=== PATIENT | male | born 1960 | race Asian ===

== ENCOUNTER → 2020-01-26 | Outpatient (CLI) | payer BC ==
[~2020-01-26] MED LIST: ASPI81EC PO; ATEN25; ATOR10 PO; METF500C PO; METO50 PO; Norco 5-325 Ta1 EACH PO; ONDA4ODT MM; OXYACE5T PO; WARF10 PO; XIFAXAN; Zofran Odt4 MG SL
[2020-01-26 11:49] LABS: Influenza A Negative (NEGATIVE); Influenza B Negative (NEGATIVE)
== END | disposition home or self-care (01) ==
LOC: LAB SHORT 11:06 → LAB 11:06
PROVIDERS: Internal Medicine Nephrology
DX: J20.9 Acute bronchitis, unspecified (principal)
CPT/HCPCS: 87804

== ENCOUNTER 2020-02-02 15:08 | Inpatient (IN) | payer BC ==
[~2020-02-02] VITALS: Ht 175.3 cm; Wt 80.0 kg
[~2020-02-02 15:08] MED LIST changes: +ASPI81CH PO; -ASPI81EC PO; +LOSA25 PO
--- NOTE | 2020-02-02 15:35 | NUR ---
PT TO [facility] FOR JUDY. PT HAD IV IN PLACE L WRSIT (RECEIVING OUTPT ABX), UNABLE TO FLUSH, REMOVED-CANNULA INTACT.
--- NOTE | 2020-02-02 17:28 | NUR ---
PT DROWSY POST JUDY, BUT CONVERING APPROPRIATELY. PT DENIES PAIN, SOB OR NAUSEA. MONITOR SR 70-80'S, B/P 112/74, 99.2, SPO2 94-95% RA. DR DONALD INTO DISCUSS FINDINGS WITH PT.
--- NOTE | 2020-02-02 18:03 | NUR ---
DR BACK HERE TO EVALUATE PT.
--- NOTE | 2020-02-02 18:33 | NUR ---
REPORT CALLED TO JUANITA RN PCU, ALL QUESTIONS ANSWERED. PT TO PCU 6 VIA W/C, CONDITION STABLE.
[2020-02-02 20:00] LABS: BASOPHILS ABSOLUTE AUTO 0.03 K/mm3 (0.00-0.23); BASOPHILS PERCENT AUTO 0 % (0-2); EOSINOPHILS ABSOLUTE AUTO 0.13 K/mm3 (0.00-0.68); EOSINOPHILS PERCENT AUTO 2 % (0-6); Hematocrit 38.7 % (37.0-53.0); Hemoglobin 13.2 g/dL (13.5-17.5); IMMATURE GRAN ABSOLUTE AUTO 0.07 K/mm3 (0.00-0.10); IMMATURE GRAN PERCENT AUTO 1 % (0-1); LYMPHOCYTES ABSOLUTE AUTO 0.93 K/mm3 (0.84-5.20); LYMPHOCYTES PERCENT AUTO 12 % (21-46); MONOCYTES ABSOLUTE AUTO 0.65 K/mm3 (0.16-1.47); MONOCYTES PERCENT AUTO 8 % (4-13); Mean Corpuscular HGB Conc 34.1 g/dL (31.5-36.5); Mean Corpuscular Volume 91 fL (80-100); Mean Platelet Volume 9.5 fL (9.1-12.4); NEUTROPHILS ABSOLUTE AUTO 6.05 K/mm3 (1.96-9.15); NEUTROPHILS PERCENT AUTO 77 % (41-73); Platelet Count 247 K/mm3 (150-400); RDW Coefficient Variation 11.6 % (11.7-14.2); RDW Standard Deviation 38.9 fL (35.1-46.3); Red Blood Cell Count 4.26 M/mm3 (4.30-5.90); White Blood Cell Count 7.86 K/mm3 (4.00-11.30)
[2020-02-02 20:19] LABS: International Normalized Ratio 2.47; Prothrombin Time Results 25.1 Sec (9.7-11.5)
[2020-02-02 20:22] LABS: Albumin, Blood 3.4 g/dL (3.4-5.0); Anion Gap 4 mmol/L (6-16); Blood Urea Nitrogen 12 mg/dL (8-24); Bun/Creatinine Ratio 15.4 (12.0-20.0); CO2, Blood 28 mmol/L (21-32); Calcium, Blood 8.4 mg/dL (8.5-10.1); Chloride, Blood 103 mmol/L (98-108); Creatinine, Blood 0.78 mg/dL (0.60-1.20); Glomerular Filtration Rate >60 (60-); Glucose, Blood 264 mg/dL (70-99); Phosphorus, Blood 2.2 mg/dL (2.5-4.9); Potassium, Blood 3.4 mmol/L (3.5-5.5); Sodium, Blood 135 mmol/L (136-145)
[2020-02-03 04:09] LABS: BASOPHILS ABSOLUTE AUTO 0.04 K/mm3 (0.00-0.23); BASOPHILS PERCENT AUTO 1 % (0-2); EOSINOPHILS ABSOLUTE AUTO 0.23 K/mm3 (0.00-0.68); EOSINOPHILS PERCENT AUTO 3 % (0-6); Hematocrit 37.6 % (37.0-53.0); Hemoglobin 13.2 g/dL (13.5-17.5); IMMATURE GRAN ABSOLUTE AUTO 0.09 K/mm3 (0.00-0.10); IMMATURE GRAN PERCENT AUTO 1 % (0-1); LYMPHOCYTES ABSOLUTE AUTO 1.04 K/mm3 (0.84-5.20); LYMPHOCYTES PERCENT AUTO 13 % (21-46); MONOCYTES ABSOLUTE AUTO 0.97 K/mm3 (0.16-1.47); MONOCYTES PERCENT AUTO 12 % (4-13); Mean Corpuscular HGB 31.3 pg (26.0-34.0); Mean Corpuscular HGB Conc 35.1 g/dL (31.5-36.5); Mean Corpuscular Volume 89 fL (80-100); NEUTROPHILS ABSOLUTE AUTO 5.51 K/mm3 (1.96-9.15); NEUTROPHILS PERCENT AUTO 70 % (41-73); Platelet Count 185 K/mm3 (150-400); RDW Coefficient Variation 11.7 % (11.7-14.2); RDW Standard Deviation 37.4 fL (35.1-46.3); Red Blood Cell Count 4.22 M/mm3 (4.30-5.90); White Blood Cell Count 7.88 K/mm3 (4.00-11.30)
[2020-02-03 04:32] LABS: Anion Gap 6 mmol/L (6-16); Blood Urea Nitrogen 12 mg/dL (8-24); Bun/Creatinine Ratio 15.4 (12.0-20.0); CO2, Blood 26 mmol/L (21-32); Calcium, Blood 8.5 mg/dL (8.5-10.1); Chloride, Blood 108 mmol/L (98-108); Creatinine, Blood 0.78 mg/dL (0.60-1.20); Glomerular Filtration Rate >60 (60-); Glucose, Blood 154 mg/dL (70-99); Potassium, Blood 3.7 mmol/L (3.5-5.5); Sodium, Blood 140 mmol/L (136-145)
[2020-02-03 04:37] LABS: International Normalized Ratio 2.35
--- NOTE | 2020-02-03 05:49 | NUR ---
SHIFT SUMMARY PT SLEEPING IN ROOM COMFORTABLY AT THIS TIME. NO ACUTE CHANGES IN STATUS T/O NIGHT. PT SLEPT WELL. DENIED CP OR SOB. PT WAS MEDCIATED EARLY IN SHIFT FOR MILD FEVER AND CHILLS. NS INFUSING IN PIV. RESP EVEN UNLABORED ON RA W/ SATS >92%. DENIED OTHER NEEDS. PT IND IN ROOM. CALL LIGHT IN REACH.
[2020-02-03 12:30] LABS: Source, Urine Clean Catch
[2020-02-03 12:44] LABS: Bilirubin, Urine Neg (Neg); Blood, Urine Neg (Neg); Glucose Qualitative, Urine 3+ (Neg); Ketones, Urine Neg (Neg); Leukocyte Esterase, Urine Neg (Neg); Nitrite, Urine Neg (Neg); Protein, Urine Neg (Neg); Specific Gravity, Urine 1.015 (1.003-1.022); Urobilinogen, Urine NORM (Normal)
[2020-02-03 12:48] LABS: Appearance, Urine Clear (Clear); Color, Urine Yellow (P-Yellow)
--- NOTE | 2020-02-03 17:20 | NUR ---
SHIFT NOTE PT HAS BEEN INDEPENDANT IN ROOM T/O THE DAY. PT HAS BEEN UP TO THE SHOWER. DR TSE, DR MINOR, DR MERCADO AND DR MINOR HAVE CONSULTED WITH PT. PT HAS BEEN UPDATED AND EDUCATED ON ALL MEDICATION CHANGES T/O THE DAY. CONSULTED WITH DR MINOR FOR CT CHEST/ABD/PELVIS WITH CONTRAST WHICH WAS PERFORMED TODAY. PT HAS BEEN RESTING IN BED W/O CP OR SOB T/O THE DAY. DOES REPORT MILD THROAT PAIN FROM YESTEDAY'S JUDY. PT STS THAT HE HAS HAD SOME CHILLS TODAY BUT HAS REMAINED A-FEBRILE. PT STS THAT HE WOULD LIKE SOME TYLENOL TONIGHT BEFORE BED TO HELP WITH GENERALIZED BODY AHCES
--- NOTE | 2020-02-03 20:30 | NUR ---
PT REQUESTING NO MIDNIGHT VITALS. VS HAVE BEEN STABLE T/O STAY. SBP WAS LOW AT START OF SHIFT. METOPROLOL HELD.
[2020-02-04 03:35] LABS: BASOPHILS ABSOLUTE AUTO 0.03 K/mm3 (0.00-0.23); BASOPHILS PERCENT AUTO 0 % (0-2); EOSINOPHILS ABSOLUTE AUTO 0.26 K/mm3 (0.00-0.68); EOSINOPHILS PERCENT AUTO 3 % (0-6); Hematocrit 37.3 % (37.0-53.0); Hemoglobin 12.7 g/dL (13.5-17.5); IMMATURE GRAN ABSOLUTE AUTO 0.11 K/mm3 (0.00-0.10); IMMATURE GRAN PERCENT AUTO 1 % (0-1); LYMPHOCYTES ABSOLUTE AUTO 0.95 K/mm3 (0.84-5.20); LYMPHOCYTES PERCENT AUTO 11 % (21-46); MONOCYTES ABSOLUTE AUTO 0.79 K/mm3 (0.16-1.47); MONOCYTES PERCENT AUTO 9 % (4-13); Mean Corpuscular HGB 30.8 pg (26.0-34.0); Mean Corpuscular Volume 90 fL (80-100); Mean Platelet Volume 9.4 fL (9.1-12.4); NEUTROPHILS ABSOLUTE AUTO 6.47 K/mm3 (1.96-9.15); NEUTROPHILS PERCENT AUTO 75 % (41-73); Platelet Count 278 K/mm3 (150-400); RDW Coefficient Variation 11.7 % (11.7-14.2); RDW Standard Deviation 38.7 fL (35.1-46.3); Red Blood Cell Count 4.13 M/mm3 (4.30-5.90); White Blood Cell Count 8.61 K/mm3 (4.00-11.30)
[2020-02-04 03:48] LABS: International Normalized Ratio 2.74; Prothrombin Time Results 27.7 Sec (9.7-11.5)
[2020-02-04 03:56] LABS: Anion Gap 7 mmol/L (6-16); Blood Urea Nitrogen 12 mg/dL (8-24); Bun/Creatinine Ratio 13.9 (12.0-20.0); CO2, Blood 27 mmol/L (21-32); Calcium, Blood 8.7 mg/dL (8.5-10.1); Chloride, Blood 105 mmol/L (98-108); Creatinine, Blood 0.87 mg/dL (0.60-1.20); Glomerular Filtration Rate >60 (60-); Glucose, Blood 169 mg/dL (70-99); Potassium, Blood 3.6 mmol/L (3.5-5.5); Sodium, Blood 139 mmol/L (136-145)
--- NOTE | 2020-02-04 05:27 | NUR ---
SHIFT SUMMARY PT SLEEPING IN ROOM COMFORTABLY AT THIS TIME. NO AUTE CHNAGES IN STATUS T/O NIGHT. PT DENIED ANY CP OR SOB. REPORTED SOME CHILLS EARLY IN SHIFT WAS MEDICATED PER EMAR. RESP EVEN UNLABORED ON RA W/ SATS >92% DENIED OTHER NEEDS. PT IND IN ROOM. CALL LIGHT IN REACH.
--- NOTE | 2020-02-04 17:02 | NUR ---
SHIFT SUMMARY PT A&Ox4; CALM AND COOPERATIVE WITH CARE. PT REPORTS MILD LOWER BACK PAIN AND HEADACHE; MEDICATED WITH TYLENOL WITH POSITIVE RESULTS. PT DENIES CHEST PAIN; SOB; DIZZINESS AND NAUSEA. PT RECEIVING IV ANTIBIOTICS. PT UP WALKING IND IN HALLS. VSS. NO OTHER ACUTE CHANGES NOTED DURING SHIFT. WILL CONTINUE TO MONITOR UNITL REPORT GIVEN TO ONCOMING HILARY
[2020-02-05 05:44] LABS: International Normalized Ratio 2.63; Prothrombin Time Results 26.6 Sec (9.7-11.5)
[2020-02-05 05:46] LABS: Albumin, Blood 3.3 g/dL (3.4-5.0); Anion Gap 6 mmol/L (6-16); Blood Urea Nitrogen 10 mg/dL (8-24); Bun/Creatinine Ratio 12.5 (12.0-20.0); CO2, Blood 27 mmol/L (21-32); Calcium, Blood 8.6 mg/dL (8.5-10.1); Chloride, Blood 105 mmol/L (98-108); Glomerular Filtration Rate >60 (60-); Glucose, Blood 169 mg/dL (70-99); Phosphorus, Blood 3.2 mg/dL (2.5-4.9); Potassium, Blood 3.7 mmol/L (3.5-5.5); Sodium, Blood 138 mmol/L (136-145)
--- NOTE | 2020-02-05 06:24 | NUR ---
SHIFT SUMMARY PT HAS DONE WELL THROUGH THE NIGHT. ELEVATED TEMP OF 100.5 NOTED AT THE BEGINNING OF THE NIGHT, PT ALSO C/O BODY ACHES. TYLENOL WAS GIVEN PER PT REQUEST. TEMP HAS DECREASED, CURRENT TEMP IS 98.5, VSS, RESP UNLABORED, PT DENIES CP/SOB, TOLERATING PO INTAKE, & VOIDING WNL. PT IS INDEPENDENT IN THE ROMM AND HAD REQUESTED LESS FREQUENT ROUNDING THROUGH THE NIGHT IN ORDER TO GET MORE REST. PT WAS MONOTORED CLOSELY VIA TELE SCREENS, HE REMAINS IN SINUS RHYTHM. PT WAS GIVEN HIS 0900 METOPROLOL THIS AM PER HIS REQUEST. LAST NIGHTS DOSE WAS HELD DUE TO BORDERLINE BP PERAMETERS & PT PREFERANCE. PT STATES HE FEELS A LITTLE BETTER THIS AM, CALL LIGHT IN REACH, WCTM & REPORT TO DAY RN.
[2020-02-05 09:23] LABS: Gentamicin, Trough <0.2 ug/mL (0.0-1.9)
[2020-02-05 11:52] LABS: Gentamicin, Peak 11.6 ug/mL (4.0-8.0)
[2020-02-05] MEDS ORDERED: ACET325 PO ×2 (13:32)
[2020-02-05] MEDS ORDERED: CEFTRIAXONE2 GM IV ×2 (13:33)
[2020-02-05] MEDS ORDERED: GENTAMICIN IV ×2 (13:34)
--- NOTE | 2020-02-05 13:46 | NUR ---
UPDATE PT ALERT AND ORIENTED. VS STABLE. DR. MERCADO IN THIS AFTERNOON WITH PLANS FOR DISCHARGE WITH IV ANTIBIOTICS TO BE RECEIVED FOR 6 WEEKS AN OUTPATIENT. ORDER FAXED TO [facility] AND FIRST APPOINTMENT MADE FOR TOMORROW AT 2PM. PT PROVDIDED DISCHARGE INSTRUCTIONS AND EDUCATION. PT REFUSED WHEELCHAIR RIDE OUT. IV REMOVED AND POWERGLIDE PLACED FOR HALF-WAY ANTIBIOTICS.
== END 2020-02-05 14:42 | disposition home or self-care (01) | DRG 314 ==
LOC: MHTC 15:08 → PCU 18:50 → ORD 19:45 → PCU 02-03 04:00
PROVIDERS: Internal Medicine; Internal Medicine Infectious Disease; ADMIT Family Medicine
DX: T82.6XXA Infection and inflammatory reaction due to cardiac valve prosthesis, initial encounter (principal); I33.0 Acute and subacute infective endocarditis; R78.81 Bacteremia; B95.5 Unspecified streptococcus as the cause of diseases classified elsewhere; E11.9 Type 2 diabetes mellitus without complications; Z79.4 Long term (current) use of insulin; E78.5 Hyperlipidemia, unspecified; I10 Essential (primary) hypertension
CPT/HCPCS: 36415; 71046; 71260; 74177; 80048; 80069; 80170; 81003; 82947; 85025; 85610; 87040; 93312; 93325; A9270; A9270-GY; C1751; J0290; J0696; J1580; J2250; J2704; J3370; J7030; Q9967

== ENCOUNTER 2020-02-07 09:58 | Day surgery (SDC) | payer BC ==
[~2020-02-07 09:58] MED LIST changes: +ACET325 PO; +CEFTRIAXONE2 GM IV; +GENTAMICIN IV
== END 2020-02-07 15:19 | disposition home or self-care (01) ==
LOC: ATC 09:58
DX: I38 Endocarditis, valve unspecified (principal); R78.81 Bacteremia; B95.8 Unspecified staphylococcus as the cause of diseases classified elsewhere; I12.9 Hypertensive chronic kidney disease with stage 1 through stage 4 chronic kidney disease, or unspecified chronic kidney disease; E11.22 Type 2 diabetes mellitus with diabetic chronic kidney disease; N18.1 Chronic kidney disease, stage 1; D63.1 Anemia in chronic kidney disease; E78.5 Hyperlipidemia, unspecified; Z95.2 Presence of prosthetic heart valve; Z79.82 Long term (current) use of aspirin; Z79.899 Other long term (current) drug therapy; Z79.01 Long term (current) use of anticoagulants; Z79.84 Long term (current) use of oral hypoglycemic drugs; Z88.2 Allergy status to sulfonamides
CPT/HCPCS: 96365; 96367; J0696; J1580

== ENCOUNTER 2020-02-09 00:26 | Day surgery (SDC) | payer BC | END 2020-02-09 15:07 | disposition home or self-care (01) | LOC: ATC 00:26 | DX: A49.1 Streptococcal infection, unspecified site (principal); E11.9 Type 2 diabetes mellitus without complications; I10 Essential (primary) hypertension; Z79.82 Long term (current) use of aspirin; Z88.2 Allergy status to sulfonamides; Z79.84 Long term (current) use of oral hypoglycemic drugs; Z79.899 Other long term (current) drug therapy | CPT/HCPCS: J0696; J1580 ==

== ENCOUNTER 2020-02-10 13:15 | Day surgery (SDC) | payer BC | END 2020-02-10 14:25 | disposition home or self-care (01) | LOC: ATC 13:15 | DX: A49.1 Streptococcal infection, unspecified site (principal); Z88.2 Allergy status to sulfonamides; I12.9 Hypertensive chronic kidney disease with stage 1 through stage 4 chronic kidney disease, or unspecified chronic kidney disease; E11.22 Type 2 diabetes mellitus with diabetic chronic kidney disease; N18.9 Chronic kidney disease, unspecified; D63.1 Anemia in chronic kidney disease; Z79.01 Long term (current) use of anticoagulants; Z79.84 Long term (current) use of oral hypoglycemic drugs; Z79.82 Long term (current) use of aspirin; Z79.899 Other long term (current) drug therapy | CPT/HCPCS: J0696; J1580 ==

== ENCOUNTER 2020-02-12 00:04 | Day surgery (SDC) | payer BC | END 2020-02-12 14:30 | disposition home or self-care (01) | LOC: ATC 00:04 | DX: A49.1 Streptococcal infection, unspecified site (principal); E11.22 Type 2 diabetes mellitus with diabetic chronic kidney disease; I12.9 Hypertensive chronic kidney disease with stage 1 through stage 4 chronic kidney disease, or unspecified chronic kidney disease; N18.9 Chronic kidney disease, unspecified; Z79.82 Long term (current) use of aspirin; Z79.84 Long term (current) use of oral hypoglycemic drugs; Z88.2 Allergy status to sulfonamides; Z79.899 Other long term (current) drug therapy | CPT/HCPCS: J0696; J1580 ==

== ENCOUNTER 2020-02-15 00:06 | Day surgery (SDC) | payer BC | END 2020-02-15 14:22 | disposition home or self-care (01) | LOC: ATC 00:06 | DX: A49.1 Streptococcal infection, unspecified site (principal); E11.22 Type 2 diabetes mellitus with diabetic chronic kidney disease; I12.9 Hypertensive chronic kidney disease with stage 1 through stage 4 chronic kidney disease, or unspecified chronic kidney disease; Z79.84 Long term (current) use of oral hypoglycemic drugs; Z79.82 Long term (current) use of aspirin; Z88.2 Allergy status to sulfonamides; Z79.899 Other long term (current) drug therapy | CPT/HCPCS: 96365; 96367; J0696; J1580 ==

== ENCOUNTER 2020-02-19 00:15 | Day surgery (SDC) | payer BC | END 2020-02-19 14:29 | disposition home or self-care (01) | LOC: ATC 00:15 | DX: R78.81 Bacteremia (principal); B95.5 Unspecified streptococcus as the cause of diseases classified elsewhere; I25.10 Atherosclerotic heart disease of native coronary artery without angina pectoris; I12.9 Hypertensive chronic kidney disease with stage 1 through stage 4 chronic kidney disease, or unspecified chronic kidney disease; N18.9 Chronic kidney disease, unspecified; E11.22 Type 2 diabetes mellitus with diabetic chronic kidney disease; Z79.01 Long term (current) use of anticoagulants; Z79.84 Long term (current) use of oral hypoglycemic drugs; Z79.82 Long term (current) use of aspirin; Z79.899 Other long term (current) drug therapy; Z79.2 Long term (current) use of antibiotics | CPT/HCPCS: J0696; J1580 ==

== ENCOUNTER 2020-02-21 00:04 | Day surgery (SDC) | payer BC | END 2020-02-21 14:33 | disposition home or self-care (01) | LOC: ATC 00:04 | DX: R78.81 Bacteremia (principal); B95.5 Unspecified streptococcus as the cause of diseases classified elsewhere; I12.9 Hypertensive chronic kidney disease with stage 1 through stage 4 chronic kidney disease, or unspecified chronic kidney disease; E11.22 Type 2 diabetes mellitus with diabetic chronic kidney disease; N18.9 Chronic kidney disease, unspecified; Z79.82 Long term (current) use of aspirin; Z79.01 Long term (current) use of anticoagulants; Z79.84 Long term (current) use of oral hypoglycemic drugs; Z79.899 Other long term (current) drug therapy | CPT/HCPCS: 96365; 96367; J0696; J1580 ==

== ENCOUNTER 2020-02-22 00:12 | Day surgery (SDC) | payer BC | END 2020-02-22 14:30 | disposition home or self-care (01) | LOC: ATC 00:12 | DX: R78.81 Bacteremia (principal); B95.5 Unspecified streptococcus as the cause of diseases classified elsewhere; I12.9 Hypertensive chronic kidney disease with stage 1 through stage 4 chronic kidney disease, or unspecified chronic kidney disease; E11.9 Type 2 diabetes mellitus without complications; N18.9 Chronic kidney disease, unspecified; D63.1 Anemia in chronic kidney disease; Z79.84 Long term (current) use of oral hypoglycemic drugs; Z79.82 Long term (current) use of aspirin; Z79.01 Long term (current) use of anticoagulants; Z79.899 Other long term (current) drug therapy | CPT/HCPCS: 96365; 96367; J0696; J1580 ==

== ENCOUNTER 2020-02-23 00:12 | Day surgery (SDC) | payer BC ==
[2020-02-23 13:57] LABS: Gentamicin, Trough 0.2 ug/mL (0.0-1.9)
== END 2020-02-23 14:40 | disposition home or self-care (01) ==
LOC: ATC 00:12
PROVIDERS: Internal Medicine Infectious Disease
DX: A49.1 Streptococcal infection, unspecified site (principal); E11.22 Type 2 diabetes mellitus with diabetic chronic kidney disease; I12.9 Hypertensive chronic kidney disease with stage 1 through stage 4 chronic kidney disease, or unspecified chronic kidney disease; N18.9 Chronic kidney disease, unspecified; Z79.82 Long term (current) use of aspirin; Z88.2 Allergy status to sulfonamides; Z79.84 Long term (current) use of oral hypoglycemic drugs; Z79.01 Long term (current) use of anticoagulants
CPT/HCPCS: 36415; 80170; J0696; J1580

== ENCOUNTER 2020-02-24 07:18 | Day surgery (SDC) | payer BC | END 2020-02-24 14:11 | disposition home or self-care (01) | LOC: ATC 07:18 | DX: A49.1 Streptococcal infection, unspecified site (principal); I12.9 Hypertensive chronic kidney disease with stage 1 through stage 4 chronic kidney disease, or unspecified chronic kidney disease; E11.22 Type 2 diabetes mellitus with diabetic chronic kidney disease; Z79.84 Long term (current) use of oral hypoglycemic drugs; Z79.01 Long term (current) use of anticoagulants; Z79.82 Long term (current) use of aspirin; Z88.2 Allergy status to sulfonamides; Z79.899 Other long term (current) drug therapy | CPT/HCPCS: J0696; J1580 ==

== ENCOUNTER 2020-02-26 00:19 | Day surgery (SDC) | payer BC ==
[2020-02-26 14:07] LABS: Gentamicin, Trough <0.2 ug/mL (0.0-1.9)
== END 2020-02-26 14:59 | disposition home or self-care (01) ==
LOC: ATC 00:19
PROVIDERS: Internal Medicine Cardiovascular Disease
DX: A49.1 Streptococcal infection, unspecified site (principal); E11.22 Type 2 diabetes mellitus with diabetic chronic kidney disease; I12.9 Hypertensive chronic kidney disease with stage 1 through stage 4 chronic kidney disease, or unspecified chronic kidney disease; N18.9 Chronic kidney disease, unspecified; D63.1 Anemia in chronic kidney disease; Z88.2 Allergy status to sulfonamides; Z79.84 Long term (current) use of oral hypoglycemic drugs; Z79.01 Long term (current) use of anticoagulants; Z79.82 Long term (current) use of aspirin; Z79.899 Other long term (current) drug therapy
CPT/HCPCS: 80170; J0696; J1580

== ENCOUNTER 2020-02-27 00:08 | Day surgery (SDC) | payer BC | END 2020-02-27 14:15 | disposition home or self-care (01) | LOC: ATC 00:08 | DX: R78.81 Bacteremia (principal); B95.5 Unspecified streptococcus as the cause of diseases classified elsewhere; I25.10 Atherosclerotic heart disease of native coronary artery without angina pectoris; Z95.1 Presence of aortocoronary bypass graft; I12.9 Hypertensive chronic kidney disease with stage 1 through stage 4 chronic kidney disease, or unspecified chronic kidney disease; E11.22 Type 2 diabetes mellitus with diabetic chronic kidney disease; N18.9 Chronic kidney disease, unspecified; Z88.2 Allergy status to sulfonamides; Z79.01 Long term (current) use of anticoagulants; Z79.82 Long term (current) use of aspirin; Z79.84 Long term (current) use of oral hypoglycemic drugs; Z79.899 Other long term (current) drug therapy | CPT/HCPCS: 96365; 96367; J0696; J1580 ==

== ENCOUNTER 2020-02-28 00:06 | Day surgery (SDC) | payer BC | END 2020-02-28 14:26 | disposition home or self-care (01) | LOC: ATC 00:06 | DX: R78.81 Bacteremia (principal); B95.5 Unspecified streptococcus as the cause of diseases classified elsewhere; I25.10 Atherosclerotic heart disease of native coronary artery without angina pectoris; Z95.1 Presence of aortocoronary bypass graft; I12.9 Hypertensive chronic kidney disease with stage 1 through stage 4 chronic kidney disease, or unspecified chronic kidney disease; N18.9 Chronic kidney disease, unspecified; E11.22 Type 2 diabetes mellitus with diabetic chronic kidney disease; Z79.82 Long term (current) use of aspirin; Z79.899 Other long term (current) drug therapy; Z79.84 Long term (current) use of oral hypoglycemic drugs | CPT/HCPCS: 96365; 96367; J0696; J1580 ==

== ENCOUNTER 2020-02-29 00:10 | Day surgery (SDC) | payer BC ==
[2020-02-29 14:11] LABS: Creatinine, Blood 0.79 mg/dL (0.60-1.20); Gentamicin, Trough 0.2 ug/mL (0.0-1.9)
== END 2020-02-29 14:50 | disposition home or self-care (01) ==
LOC: ATC 00:10
PROVIDERS: Internal Medicine
DX: A49.1 Streptococcal infection, unspecified site (principal); E11.22 Type 2 diabetes mellitus with diabetic chronic kidney disease; I12.9 Hypertensive chronic kidney disease with stage 1 through stage 4 chronic kidney disease, or unspecified chronic kidney disease; N18.9 Chronic kidney disease, unspecified; Z88.2 Allergy status to sulfonamides; Z79.84 Long term (current) use of oral hypoglycemic drugs; Z79.899 Other long term (current) drug therapy; Z79.82 Long term (current) use of aspirin
CPT/HCPCS: 36415; 80170; 82565; 96365; 96367; J0696; J1580

== ENCOUNTER 2020-03-01 00:10 | Day surgery (SDC) | payer BC | END 2020-03-01 14:21 | disposition home or self-care (01) | LOC: ATC 00:10 | DX: A41.9 Sepsis, unspecified organism (principal); I12.9 Hypertensive chronic kidney disease with stage 1 through stage 4 chronic kidney disease, or unspecified chronic kidney disease; E11.22 Type 2 diabetes mellitus with diabetic chronic kidney disease; N18.9 Chronic kidney disease, unspecified; Z79.01 Long term (current) use of anticoagulants; Z79.82 Long term (current) use of aspirin; Z79.84 Long term (current) use of oral hypoglycemic drugs | CPT/HCPCS: 96365; 96368; J0696; J1580 ==

== ENCOUNTER 2020-03-05 00:08 | Day surgery (SDC) | payer BC | END 2020-03-05 14:23 | disposition home or self-care (01) | DX: R78.81 Bacteremia (principal); B95.5 Unspecified streptococcus as the cause of diseases classified elsewhere; I12.9 Hypertensive chronic kidney disease with stage 1 through stage 4 chronic kidney disease, or unspecified chronic kidney disease; N18.9 Chronic kidney disease, unspecified; E11.22 Type 2 diabetes mellitus with diabetic chronic kidney disease; Z88.2 Allergy status to sulfonamides; Z79.01 Long term (current) use of anticoagulants; Z79.899 Other long term (current) drug therapy; Z79.84 Long term (current) use of oral hypoglycemic drugs ==

== ENCOUNTER 2020-03-06 00:08 | Day surgery (SDC) | payer BC ==
[2020-03-12] MEDS ORDERED: ENOX80I SC (13:30)
[2020-03-12] MEDS ORDERED: ABAT250V (13:30)
== END 2020-03-06 14:18 | disposition home or self-care (01) ==
LOC: ATC 00:08
DX: A41.9 Sepsis, unspecified organism (principal); I12.9 Hypertensive chronic kidney disease with stage 1 through stage 4 chronic kidney disease, or unspecified chronic kidney disease; E11.22 Type 2 diabetes mellitus with diabetic chronic kidney disease; N18.9 Chronic kidney disease, unspecified; Z79.84 Long term (current) use of oral hypoglycemic drugs; Z79.01 Long term (current) use of anticoagulants; Z79.82 Long term (current) use of aspirin; Z88.2 Allergy status to sulfonamides; Z79.899 Other long term (current) drug therapy
CPT/HCPCS: 96365; 96367; J0696; J1580

== ENCOUNTER 2020-03-07 00:01 | Day surgery (SDC) | payer BC | END 2020-03-07 14:22 | disposition home or self-care (01) | LOC: ATC 00:01 | DX: A41.9 Sepsis, unspecified organism (principal); I12.9 Hypertensive chronic kidney disease with stage 1 through stage 4 chronic kidney disease, or unspecified chronic kidney disease; E11.22 Type 2 diabetes mellitus with diabetic chronic kidney disease; N18.9 Chronic kidney disease, unspecified; Z79.84 Long term (current) use of oral hypoglycemic drugs; Z79.82 Long term (current) use of aspirin; Z79.01 Long term (current) use of anticoagulants; Z79.899 Other long term (current) drug therapy; Z88.2 Allergy status to sulfonamides | CPT/HCPCS: 96365; 96367; J0696; J1580 ==

== ENCOUNTER 2020-03-08 01:10 | Day surgery (SDC) | payer BC ==
[2020-03-08 14:22] LABS: Creatinine, Blood 0.88 mg/dL (0.60-1.20); Gentamicin, Trough 0.2 ug/mL (0.0-1.9)
[2020-03-12] MEDS ORDERED: ABAT250V (13:30)
[2020-03-12] MEDS ORDERED: ENOX80I SC (13:30)
== END 2020-03-08 14:30 | disposition home or self-care (01) ==
LOC: ATC 01:10
PROVIDERS: Internal Medicine Cardiovascular Disease
DX: A41.9 Sepsis, unspecified organism (principal); I12.9 Hypertensive chronic kidney disease with stage 1 through stage 4 chronic kidney disease, or unspecified chronic kidney disease; E11.22 Type 2 diabetes mellitus with diabetic chronic kidney disease; N18.9 Chronic kidney disease, unspecified; Z79.84 Long term (current) use of oral hypoglycemic drugs; Z79.01 Long term (current) use of anticoagulants; Z79.82 Long term (current) use of aspirin; Z79.899 Other long term (current) drug therapy
CPT/HCPCS: 80170; 82565; 96365; 96367; J0696; J1580

== ENCOUNTER 2020-03-10 02:00 | Day surgery (SDC) | payer BC ==
[2020-03-12] MEDS ORDERED: ENOX80I SC (13:30)
[2020-03-12] MEDS ORDERED: ABAT250V (13:30)
== END 2020-03-10 14:21 | disposition home or self-care (01) ==
LOC: ATC 02:00
DX: A41.9 Sepsis, unspecified organism (principal); I12.9 Hypertensive chronic kidney disease with stage 1 through stage 4 chronic kidney disease, or unspecified chronic kidney disease; E11.22 Type 2 diabetes mellitus with diabetic chronic kidney disease; N18.9 Chronic kidney disease, unspecified; Z79.84 Long term (current) use of oral hypoglycemic drugs; Z79.01 Long term (current) use of anticoagulants; Z79.82 Long term (current) use of aspirin; Z88.2 Allergy status to sulfonamides; Z79.899 Other long term (current) drug therapy
CPT/HCPCS: 96365; 96367; J0696; J1580

== ENCOUNTER 2020-03-13 00:05 | Day surgery (SDC) | payer BC ==
[~2020-03-13 00:05] MED LIST changes: +ABAT250V; +ENOX80I SC
== END 2020-03-13 14:19 | disposition home or self-care (01) ==
LOC: ATC 00:05
DX: A41.9 Sepsis, unspecified organism (principal); I12.9 Hypertensive chronic kidney disease with stage 1 through stage 4 chronic kidney disease, or unspecified chronic kidney disease; E11.22 Type 2 diabetes mellitus with diabetic chronic kidney disease; N18.9 Chronic kidney disease, unspecified; Z88.2 Allergy status to sulfonamides; Z79.84 Long term (current) use of oral hypoglycemic drugs; Z79.82 Long term (current) use of aspirin; Z79.01 Long term (current) use of anticoagulants; Z79.899 Other long term (current) drug therapy
CPT/HCPCS: 96365; 96367; J0696; J1580

== ENCOUNTER 2020-03-14 13:01 | Emergency (ER) | payer BC ==
[~2020-03-14] VITALS: Ht 175.3 cm; Wt 79.4 kg
[2020-03-14 15:45] LABS: BASOPHILS ABSOLUTE AUTO 0.03 K/mm3 (0.00-0.23); BASOPHILS PERCENT AUTO 0 % (0-2); EOSINOPHILS ABSOLUTE AUTO 0.37 K/mm3 (0.00-0.68); EOSINOPHILS PERCENT AUTO 4 % (0-6); Hematocrit 35.4 % (37.0-53.0); Hemoglobin 12.1 g/dL (13.5-17.5); IMMATURE GRAN ABSOLUTE AUTO 0.03 K/mm3 (0.00-0.10); IMMATURE GRAN PERCENT AUTO 0 % (0-1); LYMPHOCYTES ABSOLUTE AUTO 0.67 K/mm3 (0.84-5.20); LYMPHOCYTES PERCENT AUTO 7 % (21-46); MONOCYTES ABSOLUTE AUTO 0.58 K/mm3 (0.16-1.47); MONOCYTES PERCENT AUTO 6 % (4-13); Mean Corpuscular HGB Conc 34.2 g/dL (31.5-36.5); Mean Corpuscular Volume 88 fL (80-100); Mean Platelet Volume 9.4 fL (9.1-12.4); NEUTROPHILS ABSOLUTE AUTO 7.42 K/mm3 (1.96-9.15); NEUTROPHILS PERCENT AUTO 82 % (41-73); Platelet Count 184 K/mm3 (150-400); RDW Coefficient Variation 12.4 % (11.7-14.2); RDW Standard Deviation 40.1 fL (35.1-46.3); Red Blood Cell Count 4.03 M/mm3 (4.30-5.90)
[2020-03-14 20:04] LABS: Albumin, Blood 3.7 g/dL (3.4-5.0); Albumin/Globulin Ratio 1.2 (0.8-1.8); Bilirubin, Total 0.4 mg/dL (0.1-1.0); Bun/Creatinine Ratio 14.1 (12.0-20.0); Calcium, Blood 8.5 mg/dL (8.5-10.1); Creatinine, Blood 1.35 mg/dL (0.60-1.20); Globulin, Blood 3.2 g/dL (2.2-4.0); Potassium, Blood 4.6 mmol/L (3.5-5.5); Total Protein, Blood 6.9 g/dL (6.4-8.2)
== END 2020-03-14 16:01 | disposition home or self-care (01) ==
LOC: ER 13:01
PROVIDERS: Internal Medicine Nephrology; Physician Assistant
DX: K91.840 Postprocedural hemorrhage of a digestive system organ or structure following a digestive system procedure (principal); Z88.2 Allergy status to sulfonamides; Z79.84 Long term (current) use of oral hypoglycemic drugs; Z79.82 Long term (current) use of aspirin; Z79.899 Other long term (current) drug therapy; I10 Essential (primary) hypertension; E11.9 Type 2 diabetes mellitus without complications; E78.5 Hyperlipidemia, unspecified
CPT/HCPCS: 80053; 85025; 96365-59; 96368; 99283-25; J0696; J7030

== ENCOUNTER 2020-03-15 00:50 | Day surgery (SDC) | payer BC ==
[2020-03-15 13:49] LABS: Creatinine, Blood 1.73 mg/dL (0.60-1.20); Gentamicin, Trough 1.1 ug/mL (0.0-1.9)
--- NOTE | 2020-03-15 14:12 | NUR ---
GENT NOT GIVEN PER PHARMACY. PT HAD ELEVATED CREATININE, YESTERDAY PT HAD SEVERE BLEEDING FOLLOWING A TOOTH EXTRACTION AND WAS SEEN IN ER.
== END 2020-03-15 15:55 | disposition home or self-care (01) ==
LOC: ATC 00:50
PROVIDERS: Internal Medicine
DX: A49.1 Streptococcal infection, unspecified site (principal); Z88.2 Allergy status to sulfonamides; I12.9 Hypertensive chronic kidney disease with stage 1 through stage 4 chronic kidney disease, or unspecified chronic kidney disease; E11.22 Type 2 diabetes mellitus with diabetic chronic kidney disease; N18.9 Chronic kidney disease, unspecified; D63.1 Anemia in chronic kidney disease; Z79.84 Long term (current) use of oral hypoglycemic drugs; Z79.01 Long term (current) use of anticoagulants; Z79.82 Long term (current) use of aspirin; Z79.899 Other long term (current) drug therapy
CPT/HCPCS: 36415; 80170; 82565; 85018; 96361; 96365; J0696; J1580; J7030

== ENCOUNTER 2020-03-16 00:42 | Day surgery (SDC) | payer BC ==
[~2020-03-16] VITALS: Ht 175.3 cm; Wt 80.0 kg
== END 2020-03-16 22:35 | disposition home or self-care (01) ==
LOC: ATC 00:42
DX: A41.9 Sepsis, unspecified organism (principal); I12.9 Hypertensive chronic kidney disease with stage 1 through stage 4 chronic kidney disease, or unspecified chronic kidney disease; E11.22 Type 2 diabetes mellitus with diabetic chronic kidney disease; N18.9 Chronic kidney disease, unspecified; D63.1 Anemia in chronic kidney disease; Z79.82 Long term (current) use of aspirin; Z88.2 Allergy status to sulfonamides; Z79.84 Long term (current) use of oral hypoglycemic drugs; Z79.01 Long term (current) use of anticoagulants
CPT/HCPCS: 96365; 96367; J1580; J7030

== ENCOUNTER 2020-03-19 13:55 | Day surgery (SDC) | payer BC ==
[~2020-03-19 13:55] MED LIST changes: -WARF7.5 PO
[2020-03-19] MEDS ORDERED: WARF7.5 PO (16:53)
== END 2020-03-19 18:18 | disposition home or self-care (01) ==
LOC: ATC 13:55
DX: N17.9 Acute kidney failure, unspecified (principal); E86.9 Volume depletion, unspecified; I12.9 Hypertensive chronic kidney disease with stage 1 through stage 4 chronic kidney disease, or unspecified chronic kidney disease; N18.9 Chronic kidney disease, unspecified; E11.22 Type 2 diabetes mellitus with diabetic chronic kidney disease
CPT/HCPCS: 96360; J7030; J7040

== ENCOUNTER → 2020-03-19 | Outpatient (CLI) | payer BC ==
[~2020-03-19] MED LIST changes: +WARF7.5 PO
[2020-03-19 10:47] LABS: BASOPHILS ABSOLUTE AUTO 0.05 K/mm3 (0.00-0.23); BASOPHILS PERCENT AUTO 1 % (0-2); EOSINOPHILS PERCENT AUTO 4 % (0-6); Hematocrit 32.5 % (37.0-53.0); Hemoglobin 10.8 g/dL (13.5-17.5); IMMATURE GRAN ABSOLUTE AUTO 0.02 K/mm3 (0.00-0.10); IMMATURE GRAN PERCENT AUTO 0 % (0-1); LYMPHOCYTES ABSOLUTE AUTO 0.88 K/mm3 (0.84-5.20); LYMPHOCYTES PERCENT AUTO 12 % (21-46); MONOCYTES ABSOLUTE AUTO 0.48 K/mm3 (0.16-1.47); MONOCYTES PERCENT AUTO 7 % (4-13); Mean Corpuscular HGB 29.8 pg (26.0-34.0); Mean Corpuscular HGB Conc 33.2 g/dL (31.5-36.5); Mean Corpuscular Volume 90 fL (80-100); Mean Platelet Volume 9.9 fL (9.1-12.4); NEUTROPHILS ABSOLUTE AUTO 5.56 K/mm3 (1.96-9.15); NEUTROPHILS PERCENT AUTO 76 % (41-73); Platelet Count 247 K/mm3 (150-400); RDW Coefficient Variation 12.5 % (11.7-14.2); RDW Standard Deviation 40.8 fL (35.1-46.3); Red Blood Cell Count 3.63 M/mm3 (4.30-5.90); White Blood Cell Count 7.29 K/mm3 (4.00-11.30)
[2020-03-19 11:08] LABS: Albumin, Blood 3.8 g/dL (3.4-5.0); Anion Gap 5 mmol/L (6-16); Blood Urea Nitrogen 18 mg/dL (8-24); Bun/Creatinine Ratio 10.7 (12.0-20.0); CO2, Blood 28 mmol/L (21-32); Calcium, Blood 8.5 mg/dL (8.5-10.1); Chloride, Blood 107 mmol/L (98-108); Creatinine, Blood 1.69 mg/dL (0.60-1.20); Glomerular Filtration Rate 45 (60-); Glucose, Blood 156 mg/dL (70-99); Phosphorus, Blood 3.4 mg/dL (2.5-4.9); Potassium, Blood 4.3 mmol/L (3.5-5.5); Sodium, Blood 140 mmol/L (136-145)
== END | disposition home or self-care (01) ==
LOC: LAB 10:40 → LAB SHORT 10:40
PROVIDERS: Internal Medicine Nephrology
DX: N18.1 Chronic kidney disease, stage 1 (principal); D63.1 Anemia in chronic kidney disease
CPT/HCPCS: 80069; 85025

== ENCOUNTER 2020-03-20 00:15 | Day surgery (SDC) | payer BC ==
[~2020-03-20 00:15] MED LIST changes: +WARF7.5 PO
== END 2020-03-20 18:03 | disposition home or self-care (01) ==
LOC: ATC 00:15
DX: N17.9 Acute kidney failure, unspecified (principal); E86.9 Volume depletion, unspecified; I12.9 Hypertensive chronic kidney disease with stage 1 through stage 4 chronic kidney disease, or unspecified chronic kidney disease; N18.9 Chronic kidney disease, unspecified; E11.22 Type 2 diabetes mellitus with diabetic chronic kidney disease; I25.10 Atherosclerotic heart disease of native coronary artery without angina pectoris; Z95.1 Presence of aortocoronary bypass graft
CPT/HCPCS: 96360; J7030

== ENCOUNTER → 2020-03-21 | Outpatient (CLI) | payer BC ==
[2020-03-21 12:28] LABS: Albumin, Blood 3.8 g/dL (3.4-5.0); Anion Gap 5 mmol/L (6-16); Blood Urea Nitrogen 14 mg/dL (8-24); Bun/Creatinine Ratio 8.5 (12.0-20.0); CO2, Blood 24 mmol/L (21-32); Calcium, Blood 8.5 mg/dL (8.5-10.1); Chloride, Blood 112 mmol/L (98-108); Creatinine, Blood 1.65 mg/dL (0.60-1.20); Glomerular Filtration Rate 46 (60-); Glucose, Blood 106 mg/dL (70-99); Phosphorus, Blood 3.3 mg/dL (2.5-4.9); Potassium, Blood 4.2 mmol/L (3.5-5.5); Sodium, Blood 141 mmol/L (136-145)
== END | disposition home or self-care (01) ==
LOC: LAB SHORT 12:07 → LAB 12:07
PROVIDERS: Internal Medicine Nephrology
DX: N18.2 Chronic kidney disease, stage 2 (mild) (principal); D63.1 Anemia in chronic kidney disease
CPT/HCPCS: 80069